=== PATIENT | male | born 1975 | race Caucasian/White ===

== ENCOUNTER → 2020-07-17 | Outpatient (CLI) | payer OTHER | LOC: ECHO 07-03 13:00 → HEART 5 07-07 14:30 → ECHO 11:00 | DX: R05 Cough (principal); R01.1 Cardiac murmur, unspecified; Z86.16 Personal history of COVID-19 | CPT/HCPCS: ECHO; 71046; 93306 ==

== ENCOUNTER → 2021-01-22 | Outpatient (CLI) | payer OTHER | LOC: HEART 5 11:00 | DX: I35.0 Nonrheumatic aortic (valve) stenosis (principal) | CPT/HCPCS: 93306 ==